=== PATIENT | male | born 1945 | race Caucasian/White ===

== ENCOUNTER → 2017-03-30 | Outpatient (REF) | payer MEDICARE, OTHER ==
[~2017-03-30] MED LIST: /CELE20CA PO; ALLE25CA PO; ASPI81TA83 OR; COLA100C2 PO; MYLI40DR PO; SUDA30TA OR; VICO5TAB PO; zocor PO
== END ==
LOC: M SFHCPLAZ 08:35
PROVIDERS: ATTEND Family Medicine
DX: E78.2 Mixed hyperlipidemia (principal); R73.01 Impaired fasting glucose; Z12.5 Encounter for screening for malignant neoplasm of prostate; Z53.8 Procedure and treatment not carried out for other reasons

== ENCOUNTER → 2017-09-29 | Outpatient (REF) | payer MEDICARE, OTHER ==
[2017-09-29 12:26] LABS: BASO # 0.1 10^3/uL (0.0-0.2); BASO % 0.9 % (0.0-1.0); EOS # 0.4 10^3/uL (0.0-0.50); EOS % 8.2 % (0.0-3.0); IMMATURE GRANULOCYTE % 0.6 % (0-0); LYMPH # 1.5 10^3/uL (1.5-4.5); LYMPH % 27.7 % (24.0-44.0); MEAN CORPUSCULAR HEMOGLOBIN 31.3 pg (27.0-33.0); MEAN CORPUSCULAR HGB CONC 33.9 g/dl (32.0-36.5); MEAN CORPUSCULAR VOLUME 92.4 fl (80.0-96.0); MONO # 0.5 10^3/uL (0.0-0.8); MONO % 8.9 % (0.0-5.0); NEUTROPHILS # 2.9 10^3/uL (1.8-7.7); NEUTROPHILS % 53.7 % (36.0-66.0); PLATELET COUNT, AUTOMATED 202 10^3/uL (150-450); RED CELL DISTRIBUTION WIDTH 12.2 % (11.5-14.5); WHITE BLOOD COUNT 5.4 10^3/uL (4.0-10.0)
[2017-09-29 12:59] LABS: ALBUMIN 4.2 GM/DL (3.2-5.2); ALKALINE PHOSPHATASE 95 U/L (45-117); ALT/SGPT 30 U/L (12-78); ANION GAP 9 MEQ/L (8-16); AST/SGOT 22 U/L (7-37); BILIRUBIN,TOTAL 0.5 MG/DL (0.2-1.0); BLOOD UREA NITROGEN 19 MG/DL (7-18); CARBON DIOXIDE LEVEL 27 MEQ/L (21-32); CHLORIDE LEVEL 108 MEQ/L (98-107); CHOLESTEROL LEVEL 151 MG/DL (<200); CREATININE FOR GFR 0.98 MG/DL (0.70-1.30); GLOMERULAR FILTRATION RATE > 60.0 (>42); GLUCOSE, FASTING 96 MG/DL (83-110); POTASSIUM SERUM 4.1 MEQ/L (3.5-5.1); SODIUM LEVEL 144 MEQ/L (136-145); TOTAL PROTEIN 7.2 GM/DL (6.4-8.2); TRIGLYCERIDES LEVEL 114 MG/DL (<150)
== END ==
LOC: M SFHCPLAZ 11:49
PROVIDERS: ATTEND Family Medicine
DX: E78.2 Mixed hyperlipidemia (principal); R73.01 Impaired fasting glucose; Z12.5 Encounter for screening for malignant neoplasm of prostate; Z23 Encounter for immunization
CPT/HCPCS: 36415; 80053; 80061; 81001; 82043; 83036; 85025; 90662; G0008; G0103; G0463

== ENCOUNTER → 2018-01-11 | Outpatient (CLI) | payer MEDICARE, BC, OTHER | LOC: M RAD 10:28 | DX: H91.8X1 Other specified hearing loss, right ear (principal) | CPT/HCPCS: 70480 ==

== ENCOUNTER → 2018-01-14 | Outpatient (CLI) | payer MEDICARE, BC, OTHER ==
[2018-01-14 10:33] LABS: BLOOD UREA NITROGEN 22 MG/DL (7-18)
[2018-01-14 10:33] LABS: CREATININE FOR GFR 1.04 MG/DL (0.70-1.30); GLOMERULAR FILTRATION RATE > 60.0 (>42)
== END ==
LOC: M LAB 09:15
DX: H91.21 Sudden idiopathic hearing loss, right ear (principal)
CPT/HCPCS: 82565

== ENCOUNTER → 2018-01-19 | Outpatient (CLI) | payer MEDICARE, BC, OTHER ==
[~2018-01-19] MED LIST changes: -/CELE20CA PO; -ALLE25CA PO; -ASPI81TA83 OR; -COLA100C2 PO; -MYLI40DR PO; +PROHANCE 279.3MG/ML 15ML VIAL (A9576) As Ordered; -SUDA30TA OR; -VICO5TAB PO; -zocor PO
== END ==
LOC: M RAD 14:53
DX: H91.21 Sudden idiopathic hearing loss, right ear (principal); I67.82 Cerebral ischemia
CPT/HCPCS: A9576

== ENCOUNTER → 2018-03-23 | Outpatient (REF) | payer MEDICARE, OTHER ==
[2018-03-23 13:04] LABS: ALBUMIN 3.8 GM/DL (3.2-5.2); ALBUMIN/GLOBULIN RATIO 1.27 (1.00-1.93); ALKALINE PHOSPHATASE 92 U/L (45-117); ALT/SGPT 27 U/L (12-78); ANION GAP 6 MEQ/L (8-16); AST/SGOT 25 U/L (7-37); BILIRUBIN,TOTAL 0.7 MG/DL (0.2-1.0); BLOOD UREA NITROGEN 17 MG/DL (7-18); CALCIUM LEVEL 8.8 MG/DL (8.8-10.2); CARBON DIOXIDE LEVEL 29 MEQ/L (21-32); CHLORIDE LEVEL 108 MEQ/L (98-107); CREATININE FOR GFR 0.86 MG/DL (0.70-1.30); GLOMERULAR FILTRATION RATE > 60.0 (>42); GLUCOSE, FASTING 85 MG/DL (70-100); MAGNESIUM LEVEL 2.6 MG/DL (1.8-2.4); POTASSIUM SERUM 4.1 MEQ/L (3.5-5.1); SODIUM LEVEL 143 MEQ/L (136-145); TOTAL PROTEIN 6.8 GM/DL (6.4-8.2)
[2018-03-23 16:35] LABS: APPEARANCE, URINE CLEAR (CLEAR); BACTERIA, URINE AUTO NEGATIVE (NEGATIVE); BILIRUBIN, URINE AUTO NEGATIVE (NEGATIVE); BLOOD, URINE BLOOD NEGATIVE (NEGATIVE); COLOR, URINE YELLOW (YELLOW); GLUCOSE, URINE (UA) AUTO NEGATIVE (NEGATIVE); KETONE, URINE AUTO NEGATIVE (NEGATIVE); LEUKOCYTE ESTERASE, URINE AUTO NEGATIVE (NEGATIVE); NITRITE, URINE AUTO NEGATIVE (NEGATIVE); PROTEIN, URINE AUTO NEGATIVE (NEGATIVE); RBC, URINE AUTO 1 /HPF (0-3); SPECIFIC GRAVITY URINE AUTO 1.015 (1.002-1.035); SQUAMOUS EPITHELIAL CELL UR AU 0 /HPF (0-6); UROBILINOGEN, URINE AUTO 0.2 mg/dL (0.0-2.0); WBC, URINE AUTO 0 /HPF (0-3)
[2018-03-23 16:36] LABS: MALB URINE SIEMENS 5.9 MG/L; MAU/CREAT RATIO 5.2 MCG/MG (0.0-30.0)
[2018-03-24 17:41] LABS: INSULIN LEVEL 6.2 uIU/mL (2.6-24.9)
== END ==
LOC: M SFHCPLAZ 08:39
DX: E78.2 Mixed hyperlipidemia (principal); R73.01 Impaired fasting glucose
CPT/HCPCS: 83525

== ENCOUNTER → 2018-09-30 | Outpatient (REF) | payer MEDICARE, OTHER ==
[2018-09-30 12:23] LABS: BASO % 0.8 % (0.0-1.0); EOS # 0.3 10^3/uL (0.0-0.50); EOS % 6.7 % (0.0-3.0); HEMATOCRIT 47.4 % (42.0-52.0); HEMOGLOBIN 15.8 g/dl (13.5-17.5); IMMATURE GRANULOCYTE % 0.8 % (0-3.0); LYMPH # 1.4 10^3/uL (1.5-4.5); LYMPH % 27.6 % (24.0-44.0); MEAN CORPUSCULAR HEMOGLOBIN 32.3 pg (27.0-33.0); MEAN CORPUSCULAR HGB CONC 33.3 g/dl (32.0-36.5); MEAN CORPUSCULAR VOLUME 96.9 fl (80.0-96.0); MONO # 0.4 10^3/uL (0.0-0.8); MONO % 8.3 % (0.0-5.0); NEUTROPHILS # 2.8 10^3/uL (1.8-7.7); NEUTROPHILS % 55.8 % (36.0-66.0); PLATELET COUNT, AUTOMATED 185 10^3/uL (150-450); RED BLOOD COUNT 4.89 10^6/uL (4.30-6.10); RED CELL DISTRIBUTION WIDTH 11.7 % (11.5-14.5); WHITE BLOOD COUNT 5.1 10^3/uL (4.0-10.0)
[2018-09-30 13:37] LABS: CPK CREATINE PHOSPHOKINASE 80 U/L (39-308); TRIGLYCERIDES LEVEL 196 MG/DL (<150)
[2018-09-30 13:38] LABS: C REACTIVE PROTEIN QUANTITATIV < 0.30 MG/DL (0.00-0.30); CHOLESTEROL LEVEL 166 MG/DL (<200); CHOLESTEROL RISK RATIO 3.608 (<5); FREE T4 0.93 NG/DL (0.76-1.46); HDL CHOLESTEROL 46 MG/DL (>40); LDL CHOLESTEROL 81 MG/DL (<100); NON-HDL-C 120 MG/DL; PSA SCREENING 2.1 NG/ML (< 4.0)
== END ==
LOC: M SFHCPLAZ 08:24
DX: E78.2 Mixed hyperlipidemia (principal); Z12.5 Encounter for screening for malignant neoplasm of prostate; R73.01 Impaired fasting glucose
CPT/HCPCS: 82550

== ENCOUNTER → 2019-04-08 | Outpatient (REF) | payer MEDICARE, OTHER ==
[~2019-04-08] MED LIST changes: +ALLE25CA PO; +ASPI81TA83 OR; +CELE1CAP4 PO; +COLA100C2 PO; +MYLI40DR PO; -PROHANCE 279.3MG/ML 15ML VIAL (A9576) As Ordered; +SUDA30TA OR; +VICO5TAB PO; +zocor PO
[2019-04-08 09:46] LABS: BASO % 0.7 % (0.0-1.0); EOS # 0.5 10^3/uL (0.0-0.50); EOS % 7.9 % (0.0-3.0); HEMOGLOBIN 16.6 g/dl (13.5-17.5); LYMPH # 1.5 10^3/uL (1.5-4.5); LYMPH % 26.8 % (24.0-44.0); MEAN CORPUSCULAR HEMOGLOBIN 31.7 pg (27.0-33.0); MEAN CORPUSCULAR HGB CONC 33.9 g/dl (32.0-36.5); MEAN CORPUSCULAR VOLUME 93.7 fl (80.0-96.0); MONO # 0.5 10^3/uL (0.0-0.8); MONO % 8.9 % (0.0-5.0); NEUTROPHILS # 3.1 10^3/uL (1.8-7.7); NEUTROPHILS % 55.2 % (36.0-66.0); PLATELET COUNT, AUTOMATED 212 10^3/uL (150-450); RED BLOOD COUNT 5.23 10^6/uL (4.30-6.10); WHITE BLOOD COUNT 5.7 10^3/uL (4.0-10.0)
[2019-04-08 10:18] LABS: HEMOGLOBIN A1c 5.7 %
[2019-04-08 10:21] LABS: BLOOD UREA NITROGEN 19 MG/DL (7-18); CARBON DIOXIDE LEVEL 33 MEQ/L (21-32); CHLORIDE LEVEL 104 MEQ/L (98-107); CREATININE FOR GFR 0.96 MG/DL (0.70-1.30); GLOMERULAR FILTRATION RATE > 60.0 (>42); GLUCOSE, FASTING 89 MG/DL (70-100); POTASSIUM SERUM 4.2 MEQ/L (3.5-5.1); SODIUM LEVEL 142 MEQ/L (136-145)
[2019-04-08 10:22] LABS: ALT/SGPT 32 U/L (12-78); BILIRUBIN,TOTAL 0.8 MG/DL (0.2-1.0); CALCIUM LEVEL 9.1 MG/DL (8.8-10.2); TOTAL PROTEIN 6.9 GM/DL (6.4-8.2)
[2019-04-08 11:42] LABS: VITAMIN B12 LEVEL 101 PG/ML (247-911)
[2019-04-12 12:24] LABS: ALBUMIN 4.31 GM/DL (3.29-5.55); ALBUMIN % 62.4 % (55.8-66.1); ALPHA-1-GLOBULIN % 4.3 % (2.9-4.9); ALPHA-2-GLOBULINS % 10.2 % (7.1-11.8); BETA-1-GLOBULINS 0.46 GM/DL (0.28-0.60); BETA-1-GLOBULINS % 6.7 % (4.7-7.2); BETA-2-GLOBULINS 0.42 GM/DL (0.19-0.55); BETA-2-GLOBULINS % 6.1 % (3.2-6.5); GAMMA GLOBULIN % 10.3 % (11.1-18.8); GAMMA GLOBULINS 0.71 GM/DL (0.65-1.58)
== END ==
LOC: M SFHCPLAZ 08:13
PROVIDERS: ATTEND Family Medicine
DX: D75.89 Other specified diseases of blood and blood-forming organs (principal); E78.2 Mixed hyperlipidemia; R73.01 Impaired fasting glucose

== ENCOUNTER → 2019-09-30 | Outpatient (REF) | payer MEDICARE, OTHER ==
[2019-09-30 12:32] LABS: ALBUMIN 4.1 GM/DL (3.2-5.2); ALT/SGPT 32 U/L (12-78); BILIRUBIN,TOTAL 0.8 MG/DL (0.2-1.0); BLOOD UREA NITROGEN 19 MG/DL (7-18); CALCIUM LEVEL 9.1 MG/DL (8.8-10.2); CARBON DIOXIDE LEVEL 30 MEQ/L (21-32); CHLORIDE LEVEL 106 MEQ/L (98-107); GLOMERULAR FILTRATION RATE > 60.0 (>42); GLUCOSE, FASTING 93 MG/DL (70-100); POTASSIUM SERUM 4.2 MEQ/L (3.5-5.1); PROSTATIC SPECIFIC AG MONITOR 2.27 NG/ML (< 4.00); SODIUM LEVEL 142 MEQ/L (136-145); TOTAL PROTEIN 7.1 GM/DL (6.4-8.2)
[2019-09-30 12:39] LABS: PTH INTACT 41.7 PG/ML (18.5-88.0); TOTAL 25(OH) VITAMIN D 29.3 NG/ML (30.0-100.0); VITAMIN B12 LEVEL 683 PG/ML (247-911)
[2019-09-30 12:53] LABS: HEMOGLOBIN A1c 5.6 %
== END ==
LOC: M LABDRAWP 09:52
PROVIDERS: ATTEND Family Medicine
DX: D75.89 Other specified diseases of blood and blood-forming organs (principal); E78.2 Mixed hyperlipidemia; R73.01 Impaired fasting glucose; Z79.899 Other long term (current) drug therapy
CPT/HCPCS: 36415; 80053; 82306; 82607; 83036; 83970; 84153; G0463

== ENCOUNTER → 2020-03-02 | Outpatient (REF) | payer MEDICARE, OTHER ==
[2020-03-02 11:05] LABS: BASO # 0.1 10^3/uL (0.0-0.2); BASO % 0.9 % (0.0-1.0); EOS # 0.5 10^3/uL (0.0-0.5); EOS % 9.2 % (0.0-3.0); HEMATOCRIT 48.9 % (42.0-52.0); HEMOGLOBIN 16.2 g/dl (13.5-17.5); LYMPH # 1.8 10^3/uL (1.5-5.0); LYMPH % 32.6 % (24.0-44.0); MEAN CORPUSCULAR HEMOGLOBIN 30.9 pg (27.0-33.0); MEAN CORPUSCULAR HGB CONC 33.1 g/dl (32.0-36.5); MEAN CORPUSCULAR VOLUME 93.3 fl (80.0-96.0); MONO # 0.5 10^3/uL (0.0-0.8); MONO % 8.5 % (0.0-5.0); NEUTROPHILS # 2.7 10^3/uL (1.5-8.5); NEUTROPHILS % 48.3 % (36.0-66.0); PLATELET COUNT, AUTOMATED 182 10^3/uL (150-450); RED BLOOD COUNT 5.24 10^6/uL (4.30-6.10); WHITE BLOOD COUNT 5.6 10^3/uL (4.0-10.0)
[2020-03-02 11:27] LABS: ALBUMIN 4.1 GM/DL (3.2-5.2); ALT/SGPT 32 U/L (12-78); BILIRUBIN,TOTAL 0.8 MG/DL (0.2-1.0); BLOOD UREA NITROGEN 19 MG/DL (7-18); CALCIUM LEVEL 9.1 MG/DL (8.8-10.2); CARBON DIOXIDE LEVEL 31 MEQ/L (21-32); CHLORIDE LEVEL 105 MEQ/L (98-107); CHOLESTEROL LEVEL 150 MG/DL (<200); CHOLESTEROL RISK RATIO 3.061 (<5); CREATININE FOR GFR 1.02 MG/DL (0.70-1.30); GLOMERULAR FILTRATION RATE > 60.0 (>42); GLUCOSE, FASTING 103 MG/DL (70-100); HDL CHOLESTEROL 49 MG/DL (>40); LDL CHOLESTEROL 71 MG/DL (<100); NON-HDL-C 101 MG/DL; POTASSIUM SERUM 4.5 MEQ/L (3.5-5.1); SODIUM LEVEL 141 MEQ/L (136-145); TOTAL PROTEIN 7.2 GM/DL (6.4-8.2); TRIGLYCERIDES LEVEL 149 MG/DL (<150)
== END ==
LOC: M SFHCPLAZ 08:28
PROVIDERS: ATTEND Family Medicine
DX: E78.2 Mixed hyperlipidemia (principal); D75.89 Other specified diseases of blood and blood-forming organs; R73.01 Impaired fasting glucose

== ENCOUNTER → 2020-08-27 | Outpatient (REF) | payer MEDICARE, OTHER ==
[2020-08-27 13:33] LABS: AMORPHOUS SEDIMENT MODERATE (NEGATIVE); APPEARANCE, URINE TURBID (CLEAR); BACTERIA, URINE AUTO NEGATIVE (NEGATIVE); BILIRUBIN, URINE AUTO NEGATIVE (NEGATIVE); BLOOD, URINE BLOOD NEGATIVE (NEGATIVE); COLOR, URINE YELLOW (YELLOW); GLUCOSE, URINE (UA) AUTO NEGATIVE (NEGATIVE); KETONE, URINE AUTO NEGATIVE (NEGATIVE); LEUKOCYTE ESTERASE, URINE AUTO NEGATIVE (NEGATIVE); NITRITE, URINE AUTO NEGATIVE (NEGATIVE); PROTEIN, URINE AUTO NEGATIVE (NEGATIVE); RBC, URINE AUTO 0 /HPF (0-3); SPECIFIC GRAVITY URINE AUTO 1.025 (1.002-1.035); SQUAMOUS EPITHELIAL CELL UR AU 0 /HPF (0-6); UROBILINOGEN, URINE AUTO 0.2 mg/dL (0.0-2.0); WBC, URINE AUTO 0 /HPF (0-3)
[2020-08-27 13:51] LABS: BASO # 0.1 10^3/uL (0.0-0.2); BASO % 0.9 % (0.0-1.0); EOS # 0.4 10^3/uL (0.0-0.5); HEMATOCRIT 51.1 % (42.0-52.0); HEMOGLOBIN 17.3 g/dl (13.5-17.5); LYMPH # 1.8 10^3/uL (1.5-5.0); LYMPH % 30.7 % (24.0-44.0); MEAN CORPUSCULAR HEMOGLOBIN 31.7 pg (27.0-33.0); MEAN CORPUSCULAR HGB CONC 33.9 g/dl (32.0-36.5); MEAN CORPUSCULAR VOLUME 93.8 fl (80.0-96.0); MONO # 0.6 10^3/uL (0.0-0.8); MONO % 9.4 % (0.0-5.0); NEUTROPHILS # 3.1 10^3/uL (1.5-8.5); NEUTROPHILS % 52.5 % (36.0-66.0); PLATELET COUNT, AUTOMATED 183 10^3/uL (150-450); RED BLOOD COUNT 5.45 10^6/uL (4.30-6.10); WHITE BLOOD COUNT 5.9 10^3/uL (4.0-10.0)
[2020-08-27 18:29] LABS: MALB URINE SIEMENS 16.3 MG/L; MAU/CREAT RATIO 5.8 MCG/MG (0.0-30.0)
[2020-08-27 18:51] LABS: ALBUMIN 4.1 GM/DL (3.2-5.2); ALT/SGPT 27 U/L (12-78); BILIRUBIN,TOTAL 0.7 MG/DL (0.2-1.0); BLOOD UREA NITROGEN 18 MG/DL (7-18); CALCIUM LEVEL 9.3 MG/DL (8.8-10.2); CARBON DIOXIDE LEVEL 29 MEQ/L (21-32); CHLORIDE LEVEL 107 MEQ/L (98-107); GLOMERULAR FILTRATION RATE > 60.0 (>42); GLUCOSE, FASTING 91 MG/DL (70-100); SODIUM LEVEL 142 MEQ/L (136-145); TOTAL PROTEIN 7.2 GM/DL (6.4-8.2)
[2020-08-27 18:55] LABS: VITAMIN B12 LEVEL 1164 PG/ML (247-911)
[2020-08-27 20:19] LABS: HEMOGLOBIN A1c 5.3 %
== END ==
LOC: M SFHCPLAZ 09:09
PROVIDERS: ATTEND Family Medicine
DX: R73.01 Impaired fasting glucose (principal); E53.8 Deficiency of other specified B group vitamins; Z12.5 Encounter for screening for malignant neoplasm of prostate
CPT/HCPCS: 36415; 80053; 81001; 82043; 82607; 83036; 85025; G0103; G0463

== ENCOUNTER → 2020-10-02 | Outpatient (CLI) | payer SELFPAY | LOC: M LABSMTC 09:17 | PROVIDERS: ATTEND Pediatrics | DX: Z11.59 Encounter for screening for other viral diseases (principal) ==

== ENCOUNTER → 2021-02-13 | Outpatient (REF) | payer MEDICARE, OTHER ==
[2021-02-13 11:13] LABS: ALBUMIN 3.9 GM/DL (3.2-5.2); ALT/SGPT 30 U/L (12-78); BILIRUBIN,TOTAL 0.7 MG/DL (0.2-1.0); BLOOD UREA NITROGEN 18 MG/DL (7-18); CALCIUM LEVEL 9.1 MG/DL (8.8-10.2); CARBON DIOXIDE LEVEL 29 MEQ/L (21-32); CHLORIDE LEVEL 107 MEQ/L (98-107); CHOLESTEROL LEVEL 136 MG/DL (<200); CHOLESTEROL RISK RATIO 3.317 (<5); CREATININE FOR GFR 0.96 MG/DL (0.70-1.30); GLOMERULAR FILTRATION RATE > 60.0 (>42); GLUCOSE, FASTING 94 MG/DL (70-100); HDL CHOLESTEROL 41 MG/DL (>40); LDL CHOLESTEROL 57 MG/DL (<100); NON-HDL-C 95 MG/DL; POTASSIUM SERUM 4.4 MEQ/L (3.5-5.1); SODIUM LEVEL 142 MEQ/L (136-145); TOTAL PROTEIN 6.8 GM/DL (6.4-8.2); TRIGLYCERIDES LEVEL 189 MG/DL (<150)
[2021-02-13 11:14] LABS: FERRITIN 134 NG/ML (26-388); FREE T4 0.92 NG/DL (0.76-1.46)
[2021-02-13 11:18] LABS: HEMOGLOBIN A1c 5.2 %
[2021-02-14 08:10] LABS: ERYTHROPOIETIN 6.2 mIU/mL (2.6-18.5); INSULIN LEVEL 14.4 uIU/mL (2.6-24.9)
[2021-02-14 14:23] LABS: ALBUMIN 4.28 GM/DL (3.29-5.55); ALPHA-1-GLOBULIN % 3.9 % (2.9-4.9); ALPHA-1-GLOBULINS 0.27 GM/DL (0.17-0.41); ALPHA-2-GLOBULINS 0.67 GM/DL (0.42-0.99); ALPHA-2-GLOBULINS % 9.9 % (7.1-11.8); BETA-1-GLOBULINS 0.42 GM/DL (0.28-0.60); BETA-1-GLOBULINS % 6.2 % (4.7-7.2); BETA-2-GLOBULINS 0.39 GM/DL (0.19-0.55); BETA-2-GLOBULINS % 5.8 % (3.2-6.5); GAMMA GLOBULIN % 11.2 % (11.1-18.8); GAMMA GLOBULINS 0.76 GM/DL (0.65-1.58)
== END ==
LOC: M SFHCPLAZ 08:04
PROVIDERS: ATTEND Family Medicine
DX: R73.01 Impaired fasting glucose (principal); E78.2 Mixed hyperlipidemia; D75.89 Other specified diseases of blood and blood-forming organs

== ENCOUNTER → 2021-04-05 | Outpatient (REF) | payer MEDICARE, OTHER ==
[2021-04-05 13:23] LABS: BASO # 0.1 10^3/uL (0.0-0.2); BASO % 0.7 % (0.0-1.0); EOS # 0.3 10^3/uL (0.0-0.5); EOS % 3.7 % (0.0-3.0); HEMATOCRIT 48.7 % (42.0-52.0); HEMOGLOBIN 16.1 g/dl (13.5-17.5); LYMPH # 1.5 10^3/uL (1.5-5.0); LYMPH % 21.2 % (24.0-44.0); MEAN CORPUSCULAR HEMOGLOBIN 31.2 pg (27.0-33.0); MEAN CORPUSCULAR HGB CONC 33.1 g/dl (32.0-36.5); MEAN CORPUSCULAR VOLUME 94.4 fl (80.0-96.0); MONO # 0.8 10^3/uL (0.0-0.8); MONO % 10.5 % (2.0-8.0); NEUTROPHILS # 4.6 10^3/uL (1.5-8.5); NEUTROPHILS % 63.6 % (36.0-66.0); PLATELET COUNT, AUTOMATED 180 10^3/uL (150-450); RED BLOOD COUNT 5.16 10^6/uL (4.30-6.10); WHITE BLOOD COUNT 7.2 10^3/uL (4.0-10.0)
[2021-04-05 14:17] LABS: ERYTHROCYTE SEDIMENTATION RATE 4 mm/hr (0-20)
== END ==
LOC: M PLALAB 13:08
PROVIDERS: ATTEND Physician Assistant
DX: M79.675 Pain in left toe(s) (principal)

== ENCOUNTER → 2021-08-08 | Outpatient (CLI) | payer MEDICARE, OTHER ==
[2021-08-08 15:36] LABS: BASO # 0.1 10^3/uL (0.0-0.2); BASO % 0.8 % (0.0-1.0); EOS # 0.4 10^3/uL (0.0-0.5); EOS % 6.1 % (0.0-3.0); HEMATOCRIT 46.4 % (42.0-52.0); HEMOGLOBIN 16.1 g/dl (13.5-17.5); LYMPH # 1.9 10^3/uL (1.5-5.0); LYMPH % 28.8 % (24.0-44.0); MEAN CORPUSCULAR HEMOGLOBIN 31.5 pg (27.0-33.0); MEAN CORPUSCULAR HGB CONC 34.7 g/dl (32.0-36.5); MEAN CORPUSCULAR VOLUME 90.8 fl (80.0-96.0); MONO # 0.5 10^3/uL (0.0-0.8); MONO % 7.3 % (2.0-8.0); NEUTROPHILS # 3.6 10^3/uL (1.5-8.5); NEUTROPHILS % 56.7 % (36.0-66.0); PLATELET COUNT, AUTOMATED 182 10^3/uL (150-450); RED BLOOD COUNT 5.11 10^6/uL (4.30-6.10); WHITE BLOOD COUNT 6.4 10^3/uL (4.0-10.0)
[2021-08-08 16:16] LABS: ALBUMIN 3.6 GM/DL (3.2-5.2); ALT/SGPT 28 U/L (12-78); BILIRUBIN,TOTAL 0.7 MG/DL (0.2-1.0); BLOOD UREA NITROGEN 18 MG/DL (7-18); CARBON DIOXIDE LEVEL 28 MEQ/L (21-32); CHLORIDE LEVEL 107 MEQ/L (98-107); CREATININE FOR GFR 1.09 MG/DL (0.70-1.30); GLOMERULAR FILTRATION RATE > 60.0 (>42); GLUCOSE, FASTING 98 MG/DL (70-100); IRON (FE) 132 UG/DL (65-175); NT-PRO BNP 31 PG/ML (<450); SODIUM LEVEL 141 MEQ/L (136-145); TOTAL IRON BINDING CAPACITY 314 UG/DL (250-450); TOTAL PROTEIN 6.7 GM/DL (6.4-8.2)
[2021-08-08 16:27] LABS: VITAMIN B12 LEVEL 945 PG/ML (247-911)
[2021-08-09 12:18] LABS: JAK2 MUTATIONS FOR PATH SENDOU See Pathology Report
[2021-08-10 08:09] LABS: ERYTHROPOIETIN 10.5 mIU/mL (2.6-18.5)
== END ==
LOC: M LAB 15:17
PROVIDERS: ATTEND Family Medicine
DX: E78.2 Mixed hyperlipidemia (principal); D75.1 Secondary polycythemia; E53.8 Deficiency of other specified B group vitamins; Z12.5 Encounter for screening for malignant neoplasm of prostate
CPT/HCPCS: 36415; 80053; 82607; 82668; 83550; 83880; 85025; 88300; G0103

== ENCOUNTER → 2022-02-11 | Outpatient (CLI) | payer MEDICARE, BC, OTHER ==
[2022-02-11 13:55] LABS: BASO % 0.7 % (0.0-1.0); EOS # 0.4 10^3/uL (0.0-0.5); EOS % 7.6 % (0.0-3.0); HEMATOCRIT 49.7 % (42.0-52.0); HEMOGLOBIN 16.6 g/dl (13.5-17.5); LYMPH # 1.8 10^3/uL (1.5-5.0); LYMPH % 30.6 % (24.0-44.0); MEAN CORPUSCULAR HEMOGLOBIN 30.6 pg (27.0-33.0); MEAN CORPUSCULAR HGB CONC 33.4 g/dl (32.0-36.5); MEAN CORPUSCULAR VOLUME 91.5 fl (80.0-96.0); MONO # 0.5 10^3/uL (0.0-0.8); MONO % 8.2 % (2.0-8.0); NEUTROPHILS % 52.4 % (36.0-66.0); PLATELET COUNT, AUTOMATED 176 10^3/uL (150-450); RED BLOOD COUNT 5.43 10^6/uL (4.30-6.10); WHITE BLOOD COUNT 5.8 10^3/uL (4.0-10.0)
[2022-02-11 14:06] LABS: ALT/SGPT 30 U/L (12-78); BILIRUBIN,TOTAL 0.7 MG/DL (0.2-1.0); BLOOD UREA NITROGEN 17 MG/DL (7-18); CALCIUM LEVEL 9.6 MG/DL (8.8-10.2); CARBON DIOXIDE LEVEL 29 MEQ/L (21-32); CHLORIDE LEVEL 108 MEQ/L (98-107); CHOLESTEROL LEVEL 137 MG/DL (<200); CHOLESTEROL RISK RATIO 3.186 (<5); CREATININE FOR GFR 0.86 MG/DL (0.70-1.30); GLOMERULAR FILTRATION RATE > 60.0 (>42); GLUCOSE, FASTING 90 MG/DL (70-100); HDL CHOLESTEROL 43 MG/DL (>40); LDL CHOLESTEROL 63 MG/DL (<100); NON-HDL-C 94 MG/DL; POTASSIUM SERUM 4.5 MEQ/L (3.5-5.1); SODIUM LEVEL 142 MEQ/L (136-145); TOTAL PROTEIN 6.8 GM/DL (6.4-8.2); TRIGLYCERIDES LEVEL 153 MG/DL (<150)
[2022-02-11 14:13] LABS: HEMOGLOBIN A1c 5.1 %
== END ==
LOC: M PLALAB 09:55
PROVIDERS: ATTEND Family Medicine
DX: R73.01 Impaired fasting glucose (principal); R78.2 Finding of cocaine in blood; D75.1 Secondary polycythemia; Z79.899 Other long term (current) drug therapy

== ENCOUNTER → 2022-08-07 | Outpatient (CLI) | payer MEDICARE, BC, OTHER | LOC: M PLAIMG 08:25 | PROVIDERS: ATTEND Family Medicine | DX: R05.3 Chronic cough (principal) ==

== ENCOUNTER → 2022-11-18 | Outpatient (CLI) | payer MEDICARE, BC, OTHER | LOC: M PLAIMG 14:09 | PROVIDERS: ATTEND Family Medicine | DX: R05.9 Cough, unspecified (principal) ==

== ENCOUNTER → 2022-11-19 | Outpatient (REF) | payer MEDICARE, BC, OTHER | LOC: M SFHCPLAZ 10:12 | PROVIDERS: ATTEND Family Medicine | DX: R05.9 Cough, unspecified (principal) ==

== ENCOUNTER → 2022-12-04 | Outpatient (CLI) | payer MEDICARE, BC, OTHER ==
[2022-12-04 17:27] LABS: C REACTIVE PROTEIN QUANTITATIV < 0.40 MG/DL (<1.0)
[2022-12-04 17:28] LABS: ALBUMIN 4.1 G/DL (3.2-5.2); ALKALINE PHOSPHATASE 107 U/L (46-116); ALT/SGPT 27 U/L (7.0-40); AST/SGOT 27 U/L (<34); BILIRUBIN,TOTAL 0.6 MG/DL (0.3-1.2); BLOOD UREA NITROGEN 18 MG/DL (9-23); CALCIUM LEVEL 9.2 MG/DL (8.3-10.6); CARBON DIOXIDE LEVEL 31 MMOL/L (20-31); CHLORIDE LEVEL 106 MMOL/L (98-107); CREATININE FOR GFR 0.87 MG/DL (0.70-1.30); GLOMERULAR FILTRATION RATE > 60.0 (>42); GLUCOSE, FASTING 77 MG/DL (74-106); SODIUM LEVEL 141 MMOL/L (136-145); TOTAL PROTEIN 6.7 G/DL (5.7-8.2)
[2022-12-04 17:29] LABS: RHEUMATOID FACTOR QUANT < 3.5 IU/ML (<14)
[2022-12-04 17:41] LABS: BASO # 0.1 10^3/uL (0.0-0.2); BASO % 1.1 % (0.0-1.0); EOS # 0.4 10^3/uL (0.0-0.5); EOS % 7.5 % (0.0-3.0); LYMPH # 1.5 10^3/uL (1.5-5.0); LYMPH % 28.9 % (24.0-44.0); MEAN CORPUSCULAR HEMOGLOBIN 31.2 pg (27.0-33.0); MEAN CORPUSCULAR HGB CONC 33.8 g/dl (32.0-36.5); MEAN CORPUSCULAR VOLUME 92.3 fl (80.0-96.0); MONO # 0.4 10^3/uL (0.0-0.8); MONO % 8.3 % (2.0-8.0); NEUTROPHILS # 2.9 10^3/uL (1.5-8.5); PLATELET COUNT, AUTOMATED 191 10^3/uL (150-450); WHITE BLOOD COUNT 5.3 10^3/uL (4.0-10.0)
[2022-12-04 17:46] LABS: CPK CREATINE PHOSPHOKINASE 108 U/L (46-171)
[2022-12-04 17:50] LABS: HEMOGLOBIN 16.9 g/dl (13.5-17.5); RED BLOOD COUNT 5.42 10^6/uL (4.30-6.10)
[2022-12-04 18:09] LABS: ERYTHROCYTE SEDIMENTATION RATE 14 mm/hr (0-20)
[2022-12-04 18:28] LABS: APPEARANCE, URINE MANUAL CLEAR (CLEAR); BILIRUBIN, URINE MANUAL NEGATIVE (NEGATIVE); BLOOD URINE MANUAL NEGATIVE (NEGATIVE); COLOR, URINE MANUAL YELLOW (YELLOW); GLUCOSE, URINE (UA) MANUAL NEGATIVE (NEGATIVE); KETONE, URINE MANUAL NEGATIVE (NEGATIVE); LEUKOCYTE ESTERASE, URINE MAN NEGATIVE (NEGATIVE); NITRITE, URINE MANUAL NEGATIVE (NEGATIVE); PROTEIN, URINE MANUAL NEGATIVE (NEGATIVE); UROBILINOGEN, URINE MANUAL NORMAL (NORMAL)
[2022-12-06 17:07] LABS: MYCOPLASMA PNEUMONIAE IgG 1420 U/mL (0-99); MYCOPLASMA PNEUMONIAE IgM <770 U/mL (0-769)
[2022-12-12 14:08] LABS: ANTINUCLEAR ANTIBODIES DIRECT Negative (Negative); ASPERGILLUS FUMIGATUS AB Negative (Negative); AUREOBASIDIUM PULLULANS Negative (Negative); CHLAMYDIA PNEUMONIAE IgM < 1:10 (< 1:10); CHLAMYDIA PSITTACI IgM < 1:10 (< 1:10); CHLAMYDIA TRACHOMATIS IgM < 1:10 (< 1:10); CYCLIC CITRULLINATED PEPTIDE 3 units (0-19); HAEMOPHILUS INFLUENZA b AB PRE <0.15 ug/mL (.); L. PNEUMOPHILA (1,3,4,5,6,8) <0.91 OD ratio (0.00-0.90); MICROPOLYSPORA FAENI AB Negative (Negative); PIGEON SERUM AB Negative (Negative); THERMOACTINOMYCES SACCHARI Negative (Negative); THERMOACTINOMYCES VULGARIS Negative (Negative)
== END ==
LOC: M PLALAB 14:38
PROVIDERS: ATTEND Family Medicine
DX: R05.3 Chronic cough (principal); Z79.899 Other long term (current) drug therapy

== ENCOUNTER → 2022-12-24 | Outpatient (CLI) | payer MEDICARE, BC, OTHER | LOC: M PLAIMG 12:26 | PROVIDERS: ATTEND Family Medicine | DX: R91.1 Solitary pulmonary nodule (principal); J84.9 Interstitial pulmonary disease, unspecified; R05.3 Chronic cough ==

== ENCOUNTER → 2022-12-29 | Outpatient (CLI) | payer MEDICARE, BC, OTHER | LOC: M CARPUL 12:34 | PROVIDERS: ATTEND Family Medicine | DX: R05.3 Chronic cough (principal) ==

== ENCOUNTER → 2023-02-26 | Outpatient (REF) | payer MEDICARE, OTHER | LOC: M SFHCPLAZ 08:57 | PROVIDERS: ATTEND Family Medicine | DX: R91.1 Solitary pulmonary nodule (principal); E78.2 Mixed hyperlipidemia; D75.1 Secondary polycythemia; R73.01 Impaired fasting glucose; Z12.5 Encounter for screening for malignant neoplasm of prostate ==

== ENCOUNTER → 2023-09-29 | Outpatient (CLI) | payer MEDICARE, BC, OTHER | LOC: M PLAIMG 10:15 | PROVIDERS: ATTEND Family Medicine | DX: J32.9 Chronic sinusitis, unspecified (principal); R05.3 Chronic cough ==

== ENCOUNTER → 2023-09-29 | Outpatient (REF) | payer MEDICARE, OTHER | LOC: M SFHCPLAZ 17:35 | PROVIDERS: ATTEND Family Medicine | DX: J32.9 Chronic sinusitis, unspecified (principal) ==

== ENCOUNTER → 2023-11-16 | Outpatient (CLI) | payer MEDICARE, BC, OTHER | LOC: M PLAIMG 09:44 | PROVIDERS: ATTEND Family Medicine | DX: J32.4 Chronic pansinusitis (principal) ==

== ENCOUNTER → 2024-01-04 | Day surgery (SDC) | payer MEDICARE, BC, OTHER ==
[~2024-01-04] VITALS: Ht 177.8 cm; Wt 67.3 kg
[~2024-01-04] MED LIST changes: +CYAN-11 PO; +SIMV20TA22 PO; +XALA0.007 OU
[2024-01-04] MEDS: NS 1,000 ML IV ONE (09:02)
[2024-01-04 09:03] VITALS: BP 161/77; TEMP 96.5; O2SAT 95
== END | disposition home or self-care (01) ==
LOC: M OPP 08:42
PROVIDERS: ATTEND Internal Medicine Gastroenterology
DX: Z12.11 Encounter for screening for malignant neoplasm of colon (principal); Z53.20 Procedure and treatment not carried out because of patient's decision for unspecified reasons

== ENCOUNTER → 2024-04-05 | Outpatient (CLI) | payer MEDICARE, BC, OTHER ==
[2024-04-05 15:24] LABS: BASO # 0.1 10^3/uL (0.0-0.2); EOS # 0.7 10^3/uL (0.0-0.5); EOS % 12.8 % (0.0-3.0); HEMATOCRIT 47.9 % (42.0-52.0); HEMOGLOBIN 15.8 g/dl (13.5-17.5); LYMPH # 1.7 10^3/uL (1.5-5.0); LYMPH % 29.2 % (24.0-44.0); MEAN CORPUSCULAR HEMOGLOBIN 30.7 pg (27.0-33.0); MEAN CORPUSCULAR VOLUME 93.2 fl (80.0-96.0); MONO # 0.4 10^3/uL (0.0-0.8); MONO % 7.7 % (2.0-8.0); NEUTROPHILS # 2.8 10^3/uL (1.5-8.5); NEUTROPHILS % 49.1 % (36.0-66.0); PLATELET COUNT, AUTOMATED 173 10^3/uL (150-450); RED BLOOD COUNT 5.14 10^6/uL (4.30-6.10); WHITE BLOOD COUNT 5.7 10^3/uL (4.0-10.0)
[2024-04-05 15:51] LABS: HEMOGLOBIN A1c 5.2 % (4.0-6.0); PSA SCREENING 1.71 NG/ML (< 4.00)
[2024-04-05 15:54] LABS: ALBUMIN 3.6 G/DL (3.2-5.2); ALKALINE PHOSPHATASE 102 U/L (46-116); ALT/SGPT 17 U/L (7.0-40); AST/SGOT 13 U/L (<34); BILIRUBIN,TOTAL 0.8 MG/DL (0.3-1.2); BLOOD UREA NITROGEN 21 MG/DL (9-23); CALCIUM LEVEL 9.3 MG/DL (8.3-10.6); CARBON DIOXIDE LEVEL 31 MMOL/L (20-31); CHLORIDE LEVEL 106 MMOL/L (98-107); CHOLESTEROL LEVEL 119 MG/DL (<200); CHOLESTEROL RISK RATIO 2.75 (<5); CREATININE FOR GFR 0.78 MG/DL (0.70-1.30); GLOMERULAR FILTRATION RATE > 60.0 (>42); GLUCOSE, FASTING 110 MG/DL (74-106); HDL CHOLESTEROL 43.2 MG/DL (>40); IRON (FE) 121 UG/DL (65-175); NON-HDL-C 75.8 MG/DL; PERCENT SATURATION 40.1 % (19.7-50.0); POTASSIUM SERUM 4.6 MMOL/L (3.5-5.1); SODIUM LEVEL 142 MMOL/L (136-145); TOTAL IRON BINDING CAPACITY 302 UG/DL (250-425); TOTAL PROTEIN 6.4 G/DL (5.7-8.2); TRIGLYCERIDES LEVEL 129 MG/DL (<150)
[2024-04-05 15:55] LABS: FREE T4 1.19 NG/DL (0.89-1.76)
[2024-04-05 15:56] LABS: FERRITIN 168.6 NG/ML (10.5-307.3); THYROID STIMULATING HORMONE 2.007 uIU/ML (0.55-4.78)
[2024-04-05 16:04] LABS: IMMUNOGLOBULIN E 156.3 IU/ML (0-378)
[2024-04-06 15:31] LABS: BERMUDA GRASS IGE 0.86 kU/L (<0.10); BIRCH IGE < 0.10 kU/L (<0.10); COMMON RAGWEED SHORT IGE 0.39 kU/L (<0.10); D002-IGE D FARINAE 0.14 kU/L (<0.10); E001-IGE CAT DANDER < 0.10 kU/L (<0.10); E005-IGE DOG DANDER < 0.10 kU/L (<0.10); ELM IGE < 0.10 kU/L (<0.10); I006 IGE COCKROACH < 0.10 kU/L (<0.10); M002 IGE CLADOSPORIUM HERBARU < 0.10 kU/L (<0.10); M003 IGE ASPERGILLUS FUMIGATU < 0.10 kU/L (<0.10); M006 IGE ALTERNIA ALTERNATA < 0.10 kU/L (<0.10); M1-PENICILLIUM NOTATUM < 0.10 kU/L (<0.10); MOUSE URINE IGE < 0.10 kU/L (<0.10); MUGWORT IGE < 0.10 kU/L (<0.10); OAK IGE < 0.10 kU/L (<0.10); ROUGH PIGWEED IGE < 0.10 kU/L (<0.10); SHEEP SORREL IGE < 0.10 kU/L (<0.10); SYCAMORE IGE < 0.10 kU/L (<0.10); T001-IGE MAPLE BOX ELDER 0.77 kU/L (<0.10); T006-IGE MOUNTAIN CEDAR < 0.10 kU/L (<0.10); T014 COTTONWOOD IGE < 0.10 kU/L (<0.10); TIMOTHY GRASS IGE 3.11 kU/L (<0.10); WALNUT TREE IGE < 0.10 kU/L (<0.10); WHITE ASH IGE < 0.10 kU/L (<0.10); WHITE MULBERRY IGE < 0.10 kU/L (<0.10)
[2024-04-07 15:27] LABS: IMMUNOGLOBULIN E FOR ALLERGENS 144 kU/L (<OR=114)
== END ==
LOC: M PLALAB 11:09
PROVIDERS: ATTEND Family Medicine
DX: E83.119 Hemochromatosis, unspecified (principal); J33.9 Nasal polyp, unspecified; E78.2 Mixed hyperlipidemia; D75.1 Secondary polycythemia; R73.01 Impaired fasting glucose; R91.1 Solitary pulmonary nodule; Z12.5 Encounter for screening for malignant neoplasm of prostate; J32.9 Chronic sinusitis, unspecified

== ENCOUNTER → 2024-09-14 | Outpatient (CLI) | payer MEDICARE, BC ==
[2024-09-14 12:59] LABS: BASO # 0.1 10^3/uL (0.0-0.2); BASO % 1.1 % (0.0-1.0); EOS # 0.5 10^3/uL (0.0-0.5); EOS % 7.6 % (0.0-3.0); LYMPH # 1.7 10^3/uL (1.5-5.0); LYMPH % 28.1 % (24.0-44.0); MEAN CORPUSCULAR HGB CONC 33.3 g/dl (32.0-36.5); MONO # 0.5 10^3/uL (0.0-0.8); MONO % 8.8 % (2.0-8.0); NEUTROPHILS # 3.3 10^3/uL (1.5-8.5); NEUTROPHILS % 54.2 % (36.0-66.0); PLATELET COUNT, AUTOMATED 179 10^3/uL (150-450); RED BLOOD COUNT 5.16 10^6/uL (4.30-6.10); WHITE BLOOD COUNT 6.2 10^3/uL (4.0-10.0)
[2024-09-14 13:11] LABS: ALKALINE PHOSPHATASE 105 U/L (40-129); ALT/SGPT 20 U/L (7.0-40); AST/SGOT 16 U/L (<34); BILIRUBIN,TOTAL 0.8 MG/DL (0.3-1.2); BLOOD UREA NITROGEN 18 MG/DL (9-23); CALCIUM LEVEL 9.8 MG/DL (8.3-10.6); CARBON DIOXIDE LEVEL 31 MMOL/L (20-31); CHLORIDE LEVEL 104 MMOL/L (98-107); CREATININE FOR GFR 0.91 MG/DL (0.70-1.30); GLOMERULAR FILTRATION RATE > 60.0 (>42); GLUCOSE, FASTING 83 MG/DL (74-106); POTASSIUM SERUM 4.2 MMOL/L (3.5-5.1); SODIUM LEVEL 141 MMOL/L (136-145); TOTAL PROTEIN 7.2 G/DL (5.7-8.2)
[2024-09-14 13:13] LABS: INR 0.99; PARTIAL THROMBOPLASTIN TIME 28.9 SECONDS (24.8-34.2); PROTHROMBIN TIME 13.4 SECONDS (12.5-14.5); VITAMIN B12 LEVEL 955 PG/ML (211-911)
== END ==
LOC: M PLALAB 09:36
PROVIDERS: ATTEND Family Medicine
DX: K74.00 Hepatic fibrosis, unspecified (principal); E53.8 Deficiency of other specified B group vitamins

== ENCOUNTER 2024-11-14 15:00 | Emergency (ER) | payer MEDICARE, BC ==
[~2024-11-14] VITALS: Ht 175.3 cm; Wt 63.6 kg
[2024-11-14 15:41] LABS: BASO # 0.1 10^3/uL (0.0-0.2); BASO % 0.9 % (0.0-1.0); EOS # 0.7 10^3/uL (0.0-0.5); EOS % 13.6 % (0.0-3.0); HEMOGLOBIN 16.2 g/dl (13.5-17.5); LYMPH # 1.5 10^3/uL (1.5-5.0); LYMPH % 27.6 % (24.0-44.0); MEAN CORPUSCULAR HEMOGLOBIN 30.8 pg (27.0-33.0); MEAN CORPUSCULAR HGB CONC 33.8 g/dl (32.0-36.5); MEAN CORPUSCULAR VOLUME 91.3 fl (80.0-96.0); MONO # 0.5 10^3/uL (0.0-0.8); NEUTROPHILS # 2.6 10^3/uL (1.5-8.5); NEUTROPHILS % 48.7 % (36.0-66.0); PLATELET COUNT, AUTOMATED 186 10^3/uL (150-450); RED BLOOD COUNT 5.26 10^6/uL (4.30-6.10); WHITE BLOOD COUNT 5.4 10^3/uL (4.0-10.0)
[2024-11-14] MEDS: IPRATROPIUM 0.5MG/ALBUTEROL 2.5MG INH SOL UD 3ML (DUONEB) NEB ONE (15:56)
[2024-11-14] MEDS: ALBUTEROL SULFATE 2.5MG/0.5ML INH NEB SOLN NEB ONE (15:56)
[2024-11-14 16:09] LABS: ALBUMIN 3.9 G/DL (3.2-5.2); ALKALINE PHOSPHATASE 108 U/L (40-129); ALT/SGPT 21 U/L (7.0-40); AST/SGOT 21 U/L (<34); BILIRUBIN,DIRECT 0.3 MG/DL (<0.4); BILIRUBIN,TOTAL 0.8 MG/DL (0.3-1.2); BLOOD UREA NITROGEN 25 MG/DL (9-23); CALCIUM LEVEL 9.7 MG/DL (8.3-10.6); CARBON DIOXIDE LEVEL 30 MMOL/L (20-31); CHLORIDE LEVEL 108 MMOL/L (98-107); CREATININE FOR GFR 0.86 MG/DL (0.70-1.30); GLOMERULAR FILTRATION RATE > 60.0 (>42); GLUCOSE, FASTING 94 MG/DL (74-106); POTASSIUM SERUM 4.2 MMOL/L (3.5-5.1); SODIUM LEVEL 146 MMOL/L (136-145); TOTAL PROTEIN 7.2 G/DL (5.7-8.2)
[2024-11-14 16:39] LABS: THYROID STIMULATING HORMONE 2.496 uIU/ML (0.55-4.78)
[2024-11-14 16:48] LABS: PROCALCITONIN <0.04 ng/ml
[2024-11-14] MEDS ORDERED: VENTAER INH (17:51)
[2024-11-14] MEDS ORDERED: MUCI600T31 PO (17:51)
[2024-11-14] MEDS: guaiFENesin ER TABLET 600 MG TAB PO ONE (18:05)
[2024-11-14 18:15] VITALS: BP 149/83; TEMP 98; O2SAT 95
[2024-11-14] MEDS ORDERED: guaiFENesin ER TABLET 600 MG TAB PO SCH (21:00)
== END 2024-11-14 18:15 | disposition home or self-care (01) ==
LOC: M ED 15:00
DX: J20.9 Acute bronchitis, unspecified (principal); I10 Essential (primary) hypertension; E78.2 Mixed hyperlipidemia; Z79.899 Other long term (current) drug therapy

== ENCOUNTER → 2025-02-10 | Outpatient (CLI) | payer MEDICARE, BC ==
[~2025-02-10] MED LIST changes: +MUCI600T31 PO; +VENTAER INH
[2025-02-10 10:34] LABS: BASO % 0.7 % (0.0-1.0); EOS # 0.7 10^3/uL (0.0-0.5); EOS % 12.3 % (0.0-3.0); HEMATOCRIT 47.6 % (42.0-52.0); HEMOGLOBIN 15.7 g/dl (13.5-17.5); LYMPH # 1.8 10^3/uL (1.5-5.0); LYMPH % 29.5 % (24.0-44.0); MEAN CORPUSCULAR VOLUME 94.1 fl (80.0-96.0); MONO # 0.5 10^3/uL (0.0-0.8); MONO % 8.3 % (2.0-8.0); NEUTROPHILS # 2.9 10^3/uL (1.5-8.5); NEUTROPHILS % 48.9 % (36.0-66.0); PLATELET COUNT, AUTOMATED 197 10^3/uL (150-450); RED BLOOD COUNT 5.06 10^6/uL (4.30-6.10)
[2025-02-10 10:55] LABS: HEMOGLOBIN A1c 5.3 % (4.0-6.0)
[2025-02-10 10:59] LABS: PERCENT SATURATION 37.9 % (19.7-50.0)
[2025-02-10 11:00] LABS: ALBUMIN 3.6 G/DL (3.2-5.2); BILIRUBIN,TOTAL 0.6 MG/DL (0.3-1.2); CALCIUM LEVEL 9.1 MG/DL (8.3-10.6); CHOLESTEROL RISK RATIO 2.46 (<5); CREATININE FOR GFR 0.89 MG/DL (0.70-1.30); FERRITIN 263.4 NG/ML (10.5-307.3); GLOMERULAR FILTRATION RATE 87.2 (>42); HDL CHOLESTEROL 43.8 MG/DL (>40); LDL CHOLESTEROL 44.8 MG/DL (<100); NON-HDL-C 64.2 MG/DL; POTASSIUM SERUM 4.3 MMOL/L (3.5-5.1); PSA SCREENING 1.98 NG/ML (< 4.00); TOTAL PROTEIN 6.6 G/DL (5.7-8.2)
== END ==
LOC: M PLALAB 07:16
PROVIDERS: ATTEND Family Medicine
DX: K74.00 Hepatic fibrosis, unspecified (principal); E53.8 Deficiency of other specified B group vitamins; R73.01 Impaired fasting glucose; E83.119 Hemochromatosis, unspecified; E78.2 Mixed hyperlipidemia; Z12.5 Encounter for screening for malignant neoplasm of prostate
CPT/HCPCS: 36415; 80053; 80061; 81517; 82607; 82728; 83036; 83550; 85025; G0103

== ENCOUNTER → 2025-02-28 | Outpatient (CLI) | payer MEDICARE, BC | LOC: M PLAIMG 10:36 | PROVIDERS: ATTEND Student in an Organized Health Care Education/Training Program | DX: R06.02 Shortness of breath (principal) ==

== ENCOUNTER 2025-05-16 10:29 | Inpatient (IN) | payer MEDICARE, BC ==
[~2025-05-16] VITALS: Ht 175.3 cm; Wt 63.6 kg
[2025-05-16 11:08] LABS: BASO # 0.0 10^3/uL (0.0-0.2); BASO % 0.2 % (0.0-1.0); EOS # 0.3 10^3/uL (0.0-0.5); EOS % 3.1 % (0.0-3.0); LYMPH # 0.8 10^3/uL (1.5-5.0); LYMPH % 7.7 % (24.0-44.0); MONO # 0.8 10^3/uL (0.0-0.8); MONO % 8.2 % (2.0-8.0); NEUTROPHILS # 8.2 10^3/uL (1.5-8.5); NEUTROPHILS % 80.2 % (36.0-66.0); PLATELET COUNT, AUTOMATED 313 10^3/uL (150-450)
[2025-05-16 11:35] LABS: ALT/SGPT 116 U/L (7.0-40); AST/SGOT 175 U/L (<34); CALCIUM LEVEL 8.7 MG/DL (8.3-10.6); CARBON DIOXIDE LEVEL 23 MMOL/L (20-31); CHLORIDE LEVEL 100 MMOL/L (98-107); CK-MB VALUE MASS 28.0 NG/ML (<3.6); CREATININE FOR GFR 0.67 MG/DL (0.70-1.30); GLOMERULAR FILTRATION RATE > 90.0 (>35); POTASSIUM SERUM 4.4 MMOL/L (3.5-5.1); SODIUM LEVEL 139 MMOL/L (136-145)
[2025-05-16 11:47] LABS: CPK CREATINE PHOSPHOKINASE 2708 U/L (46-171); MB/CK RELATIVE INDEX 1.03 (< OR =4)
[2025-05-16 12:34] LABS: INR 1.11
[2025-05-16] MEDS ORDERED: ISOVUE-370 76% 100 ML VIAL As Ordered ONE (13:02)
[2025-05-16] MEDS: NS (Normal Saline) 0.9% 1,000 ML IV SCH ×2 (13:25→15:15)
[2025-05-16] MEDS: MORPHINE 4 MG/ML 1 ML VIAL IV ONE (13:25)
[2025-05-16 13:54] LABS: APPEARANCE, URINE CLEAR (CLEAR); BACTERIA, URINE AUTO NEGATIVE (NEGATIVE); BILIRUBIN, URINE AUTO NEGATIVE (NEGATIVE); BLOOD, URINE BLOOD 1+ (NEGATIVE); GLUCOSE, URINE (UA) AUTO NEGATIVE (NEGATIVE); KETONE, URINE AUTO 2+ mg/dL (NEGATIVE); LEUKOCYTE ESTERASE, URINE AUTO NEGATIVE (NEGATIVE); MUCUS, URINE SMALL (NEGATIVE); NITRITE, URINE AUTO NEGATIVE (NEGATIVE); PROTEIN, URINE AUTO 1+ mg/dL (NEGATIVE); RBC, URINE AUTO 2 /HPF (0-3); SPECIFIC GRAVITY URINE AUTO 1.040 (1.002-1.035); SQUAMOUS EPITHELIAL CELL UR AU 0 /HPF (0-6); UROBILINOGEN, URINE AUTO 2.0 mg/dL (0.0-2.0); WBC, URINE AUTO 1 /HPF (0-3)
[2025-05-16] MEDS ORDERED: HOME MED LIST COMPLETE! XX SCH (14:30)
[2025-05-16] MEDS ORDERED: VENTAER INH (14:30)
[2025-05-16] MEDS ORDERED: MUCI600T31 PO (14:30)
[2025-05-16] MEDS ORDERED: BREO1INH INH (14:30)
[2025-05-16] MEDS ORDERED: MORPHINE 2 MG/ML 1 ML VIAL IV PRN (15:05)
[2025-05-16] MEDS ORDERED: MOM 30 ML SUSPENSION UDC PO PRN (15:05)
[2025-05-16] MEDS ORDERED: MAALOX 30 ML SUSP *UDC PO PRN (15:05)
[2025-05-16 16:00] VITALS: BP 152/86; TEMP 97.7; O2SAT 99
[2025-05-16 16:40] LABS: HEPATITIS C VIRUS ABY INDEX < 0.02 INDEX (<0.8)
[2025-05-16] MEDS ORDERED: ALBUTEROL 90 MCG/ACT 8 GM HFA INHALER INH PRN (17:05)
[2025-05-16 18:32] VITALS: O2SAT 99
[2025-05-16] MEDS: ADVAIR HFA 115/21 MCG INHALER INH SCH (19:16)
[2025-05-16 19:54] VITALS: BP 158/86; TEMP 97.5
[2025-05-16] MEDS: LATANOPROST 0.005% OPHTH SOLN 2.5 ML OU SCH (20:19)
[2025-05-16] MEDS: guaiFENesin ER TABLET 600 MG TAB PO SCH (20:20)
[2025-05-16] MEDS: SENNOSIDES/DOCUSATE SODIUM 8.6 MG/50MG TAB PO SCH (20:20)
[2025-05-16] MEDS ORDERED: DOCUSATE SODIUM 100 MG CAPSULE PO SCH (21:00)
[2025-05-17 05:12] VITALS: BP 137/69; TEMP 97.3; O2SAT 96
[2025-05-17 06:30] LABS: PLATELET COUNT, AUTOMATED 237 10^3/uL (150-450)
[2025-05-17 07:03] LABS: ALT/SGPT 132 U/L (7.0-40); AST/SGOT 295 U/L (<34); CALCIUM LEVEL 7.6 MG/DL (8.3-10.6); CARBON DIOXIDE LEVEL 27 MMOL/L (20-31); CHLORIDE LEVEL 104 MMOL/L (98-107); CPK CREATINE PHOSPHOKINASE 6737 U/L (46-171); CREATININE FOR GFR 0.74 MG/DL (0.70-1.30); GLOMERULAR FILTRATION RATE > 90.0 (>35); MAGNESIUM LEVEL 2.1 MG/DL (1.8-2.4); POTASSIUM SERUM 3.9 MMOL/L (3.5-5.1); SODIUM LEVEL 142 MMOL/L (136-145)
[2025-05-17 07:47] LABS: EOSINOPHILS 22 % (0-3); LYMPHOCYTES 15 % (16-44); MONOCYTES 7 % (0-5)
[2025-05-17 07:48] LABS: NEUTROPHILS 0 % (28-66); PLATELET ESTIMATE NORMAL (NORMAL)
[2025-05-17] MEDS: ENOXAPARIN 40 MG/0.4 ML SYRINGE (J1650 PER 10MG) SC SCH (08:35)
[2025-05-17] MEDS: predniSONE 20 MG TAB PO SCH (10:53)
[2025-05-17] MEDS: BACLOFEN 5 MG PER 1/2 TABLET PO PRN (10:53)
[2025-05-17] MEDS: ACETAMINOPHEN 325 MG TAB PO PRN (11:06)
[2025-05-17 12:00] VITALS: BP 116/71; TEMP 97.3; O2SAT 98
[2025-05-17 21:02] VITALS: BP 132/65; TEMP 97.3; O2SAT 96
[2025-05-18 04:51] VITALS: BP 128/70; TEMP 97.3; O2SAT 96
[2025-05-18 08:08] LABS: BASO # 0.0 10^3/uL (0.0-0.2); BASO % 0.3 % (0.0-1.0); EOS # 0.8 10^3/uL (0.0-0.5); EOS % 9.8 % (0.0-3.0); LYMPH # 1.2 10^3/uL (1.5-5.0); LYMPH % 13.5 % (24.0-44.0); MONO # 0.8 10^3/uL (0.0-0.8); MONO % 9.1 % (2.0-8.0); NEUTROPHILS # 5.7 10^3/uL (1.5-8.5); NEUTROPHILS % 66.5 % (36.0-66.0); PLATELET COUNT, AUTOMATED 243 10^3/uL (150-450)
[2025-05-18 08:34] LABS: ALT/SGPT 142 U/L (7.0-40); AST/SGOT 208 U/L (<34); CALCIUM LEVEL 7.7 MG/DL (8.3-10.6); CARBON DIOXIDE LEVEL 29 MMOL/L (20-31); CHLORIDE LEVEL 103 MMOL/L (98-107); CREATININE FOR GFR 0.68 MG/DL (0.70-1.30); GLOMERULAR FILTRATION RATE > 90.0 (>35); MAGNESIUM LEVEL 2.0 MG/DL (1.8-2.4); POTASSIUM SERUM 3.8 MMOL/L (3.5-5.1); SODIUM LEVEL 142 MMOL/L (136-145)
[2025-05-18 08:54] LABS: CPK CREATINE PHOSPHOKINASE 2395 U/L (46-171)
[2025-05-18 10:44] LABS: C REACTIVE PROTEIN QUANTITATIV 8.15 MG/DL (<1.0)
[2025-05-18 10:44] LABS: C REACTIVE PROTEIN QUANTITATIV 6.13 MG/DL (<1.0)
[2025-05-18 11:05] LABS: C REACTIVE PROTEIN QUANTITATIV 10.33 MG/DL (<1.0)
[2025-05-18 12:00] VITALS: BP 124/72; TEMP 97.9; O2SAT 96
[2025-05-18 20:16] VITALS: BP 122/78; TEMP 97.2; O2SAT 98
[2025-05-19 06:33] LABS: BASO # 0.0 10^3/uL (0.0-0.2); BASO % 0.3 % (0.0-1.0); EOS # 1.1 10^3/uL (0.0-0.5); EOS % 11.6 % (0.0-3.0); LYMPH # 1.3 10^3/uL (1.5-5.0); LYMPH % 13.8 % (24.0-44.0); MONO # 1.0 10^3/uL (0.0-0.8); MONO % 10.9 % (2.0-8.0); NEUTROPHILS # 5.7 10^3/uL (1.5-8.5); NEUTROPHILS % 62.6 % (36.0-66.0); PLATELET COUNT, AUTOMATED 254 10^3/uL (150-450)
[2025-05-19 07:00] LABS: ALT/SGPT 141 U/L (7.0-40); AST/SGOT 150 U/L (<34); CALCIUM LEVEL 7.7 MG/DL (8.3-10.6); CARBON DIOXIDE LEVEL 27 MMOL/L (20-31); CHLORIDE LEVEL 103 MMOL/L (98-107); CREATININE FOR GFR 0.70 MG/DL (0.70-1.30); GLOMERULAR FILTRATION RATE > 90.0 (>35); MAGNESIUM LEVEL 1.9 MG/DL (1.8-2.4); POTASSIUM SERUM 3.8 MMOL/L (3.5-5.1); SODIUM LEVEL 144 MMOL/L (136-145)
[2025-05-19 07:41] LABS: CPK CREATINE PHOSPHOKINASE 1217 U/L (46-171)
[2025-05-19] MEDS ORDERED: OXYC1CAP2 PO ×2 (11:59→12:05)
[2025-05-19 12:00] VITALS: BP 139/72; TEMP 97.5
[2025-05-19] MEDS ORDERED: DOCU8.6T PO (12:05)
[2025-05-19] MEDS ORDERED: PRED10TA2 PO (12:05)
[2025-05-22 12:02] LABS: RNP ANTIBODY <1.0 NEG AI (<1.0 NEG); SSA SJOGRENS A <1.0 NEG AI (<1.0 NEG); SSB SJOGRENS B <1.0 NEG AI (<1.0 NEG)
== END 2025-05-19 15:30 | disposition home health service (06) | DRG 552 ==
LOC: M ED 10:29 → EDBD 10:29 → M ED INP 15:04 → M MS5PR 16:05
PROVIDERS: ADMIT Internal Medicine; ATTEND Internal Medicine
PROC: B246ZZZ Ultrasonography of Right and Left Heart (ICD-10-PCS; principal; 2025-05-17)
DX: M54.50 Low back pain, unspecified (principal); M62.82 Rhabdomyolysis; Z66 Do not resuscitate; E78.5 Hyperlipidemia, unspecified; R74.01 Elevation of levels of liver transaminase levels; R91.8 Other nonspecific abnormal finding of lung field; R06.02 Shortness of breath; M47.9 Spondylosis, unspecified; D64.9 Anemia, unspecified; Z79.899 Other long term (current) drug therapy; Z90.49 Acquired absence of other specified parts of digestive tract

== ENCOUNTER → 2025-05-23 | Outpatient (CLI) | payer MEDICARE, BC ==
[~2025-05-23] MED LIST changes: +BREO1INH INH; +BUPR10DI3 TD; +DOCU8.6T PO; +NAPR220C23 PO; +OXYC1CAP2 PO; +PRED10TA2 PO
[2025-05-23 18:08] LABS: BASO # 0.0 10^3/uL (0.0-0.2); BASO % 0.1 % (0.0-1.0); EOS # 0.1 10^3/uL (0.0-0.5); EOS % 0.5 % (0.0-3.0); LYMPH # 0.7 10^3/uL (1.5-5.0); LYMPH % 7.2 % (24.0-44.0); MONO # 0.6 10^3/uL (0.0-0.8); MONO % 6.1 % (2.0-8.0); NEUTROPHILS # 8.5 10^3/uL (1.5-8.5); NEUTROPHILS % 85.6 % (36.0-66.0); PLATELET COUNT, AUTOMATED 332 10^3/uL (150-450)
[2025-05-23 18:23] LABS: C REACTIVE PROTEIN QUANTITATIV 8.54 MG/DL (<1.0); CPK CREATINE PHOSPHOKINASE 811 U/L (46-171)
[2025-05-23 18:25] LABS: VITAMIN B12 LEVEL 1136 PG/ML (211-911)
[2025-05-23 18:30] LABS: ALT/SGPT 154 U/L (7.0-40); AST/SGOT 83 U/L (<34); CALCIUM LEVEL 8.8 MG/DL (8.3-10.6); CARBON DIOXIDE LEVEL 30 MMOL/L (20-31); CHLORIDE LEVEL 98 MMOL/L (98-107); CREATININE FOR GFR 0.74 MG/DL (0.70-1.30); GLOMERULAR FILTRATION RATE > 90.0 (>35); POTASSIUM SERUM 4.5 MMOL/L (3.5-5.1); SODIUM LEVEL 141 MMOL/L (136-145)
[2025-05-23 18:31] LABS: ERYTHROCYTE SEDIMENTATION RATE 33 mm/hr (0-20)
[2025-05-26 16:52] LABS: ALDOLASE 18.1 U/L (< OR = 8.1)
[2025-05-30 23:28] LABS: ENHANCED LIVER FIBROSIS SCORE 10.26 (<9.80)
== END ==
LOC: M PLALAB 14:46
PROVIDERS: ATTEND Family Medicine
DX: K74.00 Hepatic fibrosis, unspecified (principal); R74.8 Abnormal levels of other serum enzymes; E53.8 Deficiency of other specified B group vitamins

== ENCOUNTER → 2025-05-25 | Outpatient (CLI) | payer MEDICARE, BC ==
[~2025-05-25] MED LIST changes: +PROHANCE 279.3MG/ML 5ML VIAL ONE
== END ==
LOC: M PLAIMG 10:40
PROVIDERS: ATTEND Family Medicine
DX: R74.8 Abnormal levels of other serum enzymes (principal)

== ENCOUNTER 2025-06-02 14:06 | Inpatient (IN) | payer MEDICARE, BC ==
[~2025-06-02] VITALS: Ht 185.4 cm; Wt 53.5 kg
[~2025-06-02 14:06] MED LIST changes: -BUPR10DI3 TD; -NAPR220C23 PO; -PROHANCE 279.3MG/ML 5ML VIAL ONE
[2025-06-02] MEDS: MORPHINE 4 MG/ML 1 ML VIAL IV PRN (17:04)
[2025-06-02] MEDS: NS (Normal Saline) 0.9% 1,000 ML IV SCH (17:05)
[2025-06-02 17:33] LABS: BASO # 0.0 10^3/uL (0.0-0.2); BASO % 0.1 % (0.0-1.0); EOS # 0.0 10^3/uL (0.0-0.5); EOS % 0.3 % (0.0-3.0); LYMPH # 0.6 10^3/uL (1.5-5.0); LYMPH % 6.3 % (24.0-44.0); MONO # 0.5 10^3/uL (0.0-0.8); MONO % 5.4 % (2.0-8.0); NEUTROPHILS # 8.7 10^3/uL (1.5-8.5); NEUTROPHILS % 87.3 % (36.0-66.0); PLATELET COUNT, AUTOMATED 214 10^3/uL (150-450)
[2025-06-02 17:52] LABS: ALT/SGPT 161.0 U/L (7.0-40); AST/SGOT 200.0 U/L (<34); CALCIUM LEVEL 8.5 MG/DL (8.3-10.6); CARBON DIOXIDE LEVEL 29.0 MMOL/L (20-31); CHLORIDE LEVEL 99.0 MMOL/L (98-107); CREATININE FOR GFR 1.01 MG/DL (0.70-1.30); GLOMERULAR FILTRATION RATE 75.2 (>35); POTASSIUM SERUM 5.0 MMOL/L (3.5-5.1); SODIUM LEVEL 140.0 MMOL/L (136-145)
[2025-06-02 17:53] LABS: ERYTHROCYTE SEDIMENTATION RATE 40 mm/hr (0-20)
[2025-06-02 18:21] LABS: C REACTIVE PROTEIN QUANTITATIV 13.44 MG/DL (<1.0); CPK CREATINE PHOSPHOKINASE 1913.0 U/L (46-171)
[2025-06-02] MEDS ORDERED: PRED10TA2 PO (18:42)
[2025-06-02] MEDS ORDERED: DOCU8.6T PO (18:44)
[2025-06-02] MEDS ORDERED: BUPR10DI3 TD (18:46)
[2025-06-02] MEDS ORDERED: NAPR220C23 PO (18:48)
[2025-06-02] MEDS ORDERED: HOME MED LIST COMPLETE! XX SCH (18:50)
[2025-06-02] MEDS: NS (Normal Saline) 0.9% 1,000 ML IV ONE (19:00)
[2025-06-02] MEDS ORDERED: PILL CUTTER 1 EACH XX PRN (19:00)
[2025-06-02] MEDS: predniSONE 20 MG TAB PO SCH (19:03)
[2025-06-02] MEDS: LR 1,000 ML IV SCH (19:56)
[2025-06-02] MEDS ORDERED: IPRATROPIUM 0.5 MG/ALBUTEROL 2.5 MG INH SOL UD 3 ML NEB PRN (20:00)
[2025-06-02] MEDS: SYMBICORT 160/4.5MCG INHALER 6GM INH SCH (20:00)
[2025-06-02] MEDS: LATANOPROST 0.005% OPHTH SOLN 2.5 ML OU SCH (21:00)
[2025-06-02 21:35] VITALS: BP 154/78; TEMP 97.9; O2SAT 99
[2025-06-03 03:12] VITALS: BP 136/68; TEMP 97.9; O2SAT 98
[2025-06-03 06:34] LABS: PLATELET COUNT, AUTOMATED 195 10^3/uL (150-450)
[2025-06-03 07:01] LABS: C REACTIVE PROTEIN QUANTITATIV 9.4 MG/DL (<1.0)
[2025-06-03 07:16] LABS: ALT/SGPT 130.0 U/L (7.0-40); AST/SGOT 146.0 U/L (<34); CALCIUM LEVEL 8.1 MG/DL (8.3-10.6); CARBON DIOXIDE LEVEL 28.0 MMOL/L (20-31); CHLORIDE LEVEL 103.0 MMOL/L (98-107); CPK CREATINE PHOSPHOKINASE 1381.0 U/L (46-171); CREATININE FOR GFR 0.99 MG/DL (0.70-1.30); GLOMERULAR FILTRATION RATE 77.0 (>35); POTASSIUM SERUM 4.8 MMOL/L (3.5-5.1); SODIUM LEVEL 141.0 MMOL/L (136-145)
[2025-06-03] MEDS: HEPARIN SOD 5000 UNITS/ML 1 ML VIAL/SYRINGE SC SCH (08:54)
[2025-06-03] MEDS: SENNA 8.6 MG TAB PO SCH (08:54)
[2025-06-03 11:51] VITALS: BP 149/73; TEMP 97.9; O2SAT 98
[2025-06-03 19:46] VITALS: BP 140/73; TEMP 98.1; O2SAT 98
[2025-06-04 03:37] VITALS: BP 140/69; TEMP 97.9; O2SAT 100
[2025-06-04 09:36] LABS: PLATELET COUNT, AUTOMATED 228 10^3/uL (150-450)
[2025-06-04 09:56] LABS: C REACTIVE PROTEIN QUANTITATIV 4.83 MG/DL (<1.0); CPK CREATINE PHOSPHOKINASE 800.0 U/L (46-171)
[2025-06-04 09:59] LABS: ALT/SGPT 152.0 U/L (7.0-40); AST/SGOT 129.0 U/L (<34); CALCIUM LEVEL 8.6 MG/DL (8.3-10.6); CARBON DIOXIDE LEVEL 29.0 MMOL/L (20-31); CHLORIDE LEVEL 101.0 MMOL/L (98-107); CREATININE FOR GFR 1.0 MG/DL (0.70-1.30); GLOMERULAR FILTRATION RATE 76.1 (>35); POTASSIUM SERUM 4.3 MMOL/L (3.5-5.1); SODIUM LEVEL 141.0 MMOL/L (136-145)
[2025-06-04 12:00] VITALS: BP 138/72; TEMP 97.9; O2SAT 99
[2025-06-04 19:41] VITALS: BP 144/72; TEMP 98.1; O2SAT 97
[2025-06-04] MEDS: PANTOPRAZOLE 40MG TAB PO SCH (21:50)
[2025-06-05 03:40] VITALS: BP 138/81; TEMP 97.7; O2SAT 98
[2025-06-05 07:11] LABS: PLATELET COUNT, AUTOMATED 212 10^3/uL (150-450)
[2025-06-05 08:02] LABS: ALT/SGPT 139.0 U/L (7.0-40); AST/SGOT 86.0 U/L (<34); C REACTIVE PROTEIN QUANTITATIV 3.41 MG/DL (<1.0); CALCIUM LEVEL 8.2 MG/DL (8.3-10.6); CARBON DIOXIDE LEVEL 28.0 MMOL/L (20-31); CHLORIDE LEVEL 102.0 MMOL/L (98-107); CPK CREATINE PHOSPHOKINASE 271.0 U/L (46-171); CREATININE FOR GFR 0.97 MG/DL (0.70-1.30); GLOMERULAR FILTRATION RATE 78.9 (>35); POTASSIUM SERUM 4.3 MMOL/L (3.5-5.1); SODIUM LEVEL 140.0 MMOL/L (136-145)
[2025-06-05] MEDS: ENOXAPARIN 40 MG/0.4 ML SYRINGE (J1650 PER 10MG) SC SCH (08:52)
[2025-06-05 12:00] VITALS: BP 131/78; TEMP 98.1; O2SAT 99
[2025-06-05 21:12] VITALS: BP 159/85; TEMP 97.9; O2SAT 99
[2025-06-06 03:30] VITALS: BP 123/71; TEMP 98.1; O2SAT 100
[2025-06-06 06:27] LABS: PLATELET COUNT, AUTOMATED 181 10^3/uL (150-450)
[2025-06-06 06:57] LABS: ALT/SGPT 141.0 U/L (7.0-40); AST/SGOT 70.0 U/L (<34); C REACTIVE PROTEIN QUANTITATIV 4.01 MG/DL (<1.0); CALCIUM LEVEL 8.1 MG/DL (8.3-10.6); CARBON DIOXIDE LEVEL 29.0 MMOL/L (20-31); CHLORIDE LEVEL 102.0 MMOL/L (98-107); CPK CREATINE PHOSPHOKINASE 118.0 U/L (46-171); CREATININE FOR GFR 0.98 MG/DL (0.70-1.30); GLOMERULAR FILTRATION RATE 78.0 (>35); POTASSIUM SERUM 4.4 MMOL/L (3.5-5.1); SODIUM LEVEL 139.0 MMOL/L (136-145)
[2025-06-06 12:00] VITALS: BP 138/75; TEMP 98.1; O2SAT 99
[2025-06-06 19:44] VITALS: BP 156/75; TEMP 98.2; O2SAT 99
[2025-06-07 03:02] VITALS: BP 151/92; TEMP 97.9; O2SAT 98
[2025-06-07 06:41] LABS: PLATELET COUNT, AUTOMATED 233 10^3/uL (150-450)
[2025-06-07 07:10] LABS: C REACTIVE PROTEIN QUANTITATIV 3.0 MG/DL (<1.0)
[2025-06-07 07:11] LABS: CPK CREATINE PHOSPHOKINASE 80.0 U/L (46-171)
[2025-06-07 07:12] LABS: ALT/SGPT 138.0 U/L (7.0-40); AST/SGOT 59.0 U/L (<34); CALCIUM LEVEL 8.4 MG/DL (8.3-10.6); CARBON DIOXIDE LEVEL 29.0 MMOL/L (20-31); CHLORIDE LEVEL 98.0 MMOL/L (98-107); CREATININE FOR GFR 1.01 MG/DL (0.70-1.30); GLOMERULAR FILTRATION RATE 75.2 (>35); POTASSIUM SERUM 4.3 MMOL/L (3.5-5.1); SODIUM LEVEL 138.0 MMOL/L (136-145)
[2025-06-07] MEDS: ULTRACET TAB PO SCH (11:11)
[2025-06-07 12:00] VITALS: BP 145/85; TEMP 98.2; O2SAT 96
[2025-06-07] MEDS ORDERED: MOM 30 ML SUSPENSION UDC PO PRN (15:55)
[2025-06-07] MEDS: SENNOSIDES/DOCUSATE SODIUM 8.6 MG/50MG TAB PO SCH (20:33)
[2025-06-07 20:52] VITALS: BP 143/77; TEMP 98.1; O2SAT 96
[2025-06-08 04:29] VITALS: BP 144/77; TEMP 98.1; O2SAT 98
[2025-06-08 06:36] LABS: PLATELET COUNT, AUTOMATED 243 10^3/uL (150-450)
[2025-06-08 07:09] LABS: ALT/SGPT 161.0 U/L (7.0-40); AST/SGOT 65.0 U/L (<34); CALCIUM LEVEL 8.0 MG/DL (8.3-10.6); CARBON DIOXIDE LEVEL 30.0 MMOL/L (20-31); CHLORIDE LEVEL 99.0 MMOL/L (98-107); CREATININE FOR GFR 1.03 MG/DL (0.70-1.30); GLOMERULAR FILTRATION RATE 73.4 (>35); POTASSIUM SERUM 4.2 MMOL/L (3.5-5.1); SODIUM LEVEL 138.0 MMOL/L (136-145)
[2025-06-08 19:59] VITALS: BP 135/73; TEMP 98.2; O2SAT 98
[2025-06-08 21:36] VITALS: O2SAT 98
[2025-06-09 05:20] VITALS: BP 135/73; TEMP 97.2; O2SAT 99
[2025-06-09 06:18] LABS: PLATELET COUNT, AUTOMATED 281 10^3/uL (150-450)
[2025-06-09 06:46] LABS: C REACTIVE PROTEIN QUANTITATIV 4.35 MG/DL (<1.0)
[2025-06-09 06:47] LABS: ALT/SGPT 139.0 U/L (7.0-40); AST/SGOT 55.0 U/L (<34); CALCIUM LEVEL 7.9 MG/DL (8.3-10.6); CARBON DIOXIDE LEVEL 31.0 MMOL/L (20-31); CHLORIDE LEVEL 99.0 MMOL/L (98-107); CREATININE FOR GFR 1.02 MG/DL (0.70-1.30); GLOMERULAR FILTRATION RATE 74.3 (>35); POTASSIUM SERUM 4.4 MMOL/L (3.5-5.1); SODIUM LEVEL 138.0 MMOL/L (136-145)
[2025-06-09] MEDS: TORSEMIDE 20 MG TAB PO SCH (08:22)
[2025-06-09 08:57] LABS: BORRELIA SPECIES DNA NOT DETECTED (NOT DETECT)
[2025-06-09 12:00] VITALS: BP 138/76; TEMP 97.9; O2SAT 96
[2025-06-09] MEDS: RIVAROXABAN 10MG TAB PO SCH (16:53)
[2025-06-09 19:32] VITALS: BP 134/72; TEMP 98.2; O2SAT 97
[2025-06-10 04:27] VITALS: BP 149/80; TEMP 98; O2SAT 100
[2025-06-10 07:32] LABS: ALT/SGPT 130.0 U/L (7.0-40); AST/SGOT 54.0 U/L (<34); CALCIUM LEVEL 8.3 MG/DL (8.3-10.6); CARBON DIOXIDE LEVEL 33.0 MMOL/L (20-31); CHLORIDE LEVEL 98.0 MMOL/L (98-107); CREATININE FOR GFR 1.09 MG/DL (0.70-1.30); GLOMERULAR FILTRATION RATE 68.6 (>35); POTASSIUM SERUM 3.9 MMOL/L (3.5-5.1); SODIUM LEVEL 142.0 MMOL/L (136-145)
[2025-06-10 12:00] VITALS: BP 135/78; TEMP 97.9; O2SAT 98
[2025-06-10 20:00] VITALS: BP 136/77; TEMP 98.1; O2SAT 98
[2025-06-11 04:25] VITALS: BP 138/78; TEMP 97.9; O2SAT 99
[2025-06-11 12:00] VITALS: BP 137/81; TEMP 98.1; O2SAT 97
[2025-06-11 20:00] VITALS: BP 126/64; TEMP 97.9; O2SAT 96
[2025-06-12 03:30] VITALS: BP 164/84; TEMP 97.9; O2SAT 99
[2025-06-12 09:20] LABS: ALT/SGPT 115.0 U/L (7.0-40); AST/SGOT 58.0 U/L (<34); CALCIUM LEVEL 7.8 MG/DL (8.3-10.6); CARBON DIOXIDE LEVEL 29.0 MMOL/L (20-31); CHLORIDE LEVEL 96.0 MMOL/L (98-107); CREATININE FOR GFR 1.02 MG/DL (0.70-1.30); GLOMERULAR FILTRATION RATE 74.3 (>35); POTASSIUM SERUM 4.1 MMOL/L (3.5-5.1); SODIUM LEVEL 139.0 MMOL/L (136-145)
[2025-06-12 10:07] LABS: BASO # 0.0 10^3/uL (0.0-0.2); BASO % 0.2 % (0.0-1.0); EOS # 0.6 10^3/uL (0.0-0.5); EOS % 3.4 % (0.0-3.0); LYMPH # 0.9 10^3/uL (1.5-5.0); LYMPH % 4.7 % (24.0-44.0); MONO # 2.0 10^3/uL (0.0-0.8); MONO % 10.6 % (2.0-8.0); NEUTROPHILS # 14.9 10^3/uL (1.5-8.5); NEUTROPHILS % 79.3 % (36.0-66.0); PLATELET COUNT, AUTOMATED 284 10^3/uL (150-450)
[2025-06-12 13:45] VITALS: BP 138/93; TEMP 98.1; O2SAT 99
[2025-06-12 20:00] VITALS: BP 114/73; TEMP 97.8; O2SAT 97
[2025-06-13 04:00] VITALS: BP 116/74; TEMP 97; O2SAT 97
[2025-06-13 10:21] LABS: PLATELET COUNT, AUTOMATED 296 10^3/uL (150-450)
[2025-06-13 10:54] LABS: CALCIUM LEVEL 7.6 MG/DL (8.3-10.6); CARBON DIOXIDE LEVEL 33.0 MMOL/L (20-31); CHLORIDE LEVEL 94.0 MMOL/L (98-107); CREATININE FOR GFR 1.13 MG/DL (0.70-1.30); GLOMERULAR FILTRATION RATE 65.7 (>35); POTASSIUM SERUM 3.3 MMOL/L (3.5-5.1); SODIUM LEVEL 139.0 MMOL/L (136-145)
[2025-06-13 12:00] VITALS: BP 139/94; TEMP 98.1; O2SAT 99
[2025-06-13 20:05] VITALS: BP 112/74; TEMP 98.8; O2SAT 98
[2025-06-13] MEDS: POTASSIUM CHLORIDE 10MEQ SR TABLET PO ONE (21:18)
[2025-06-14 04:58] VITALS: BP 122/92; TEMP 98.2; O2SAT 99
[2025-06-14 20:06] VITALS: BP 122/92; TEMP 98.2; O2SAT 99
[2025-06-15 04:00] VITALS: BP 126/73; TEMP 98.2; O2SAT 99
[2025-06-16 04:00] VITALS: BP 115/69; TEMP 97.7; O2SAT 99
[2025-06-17 03:53] VITALS: BP 147/76; TEMP 97.9; O2SAT 100
[2025-06-18 00:03] VITALS: BP 161/89; TEMP 97.9; O2SAT 97
[2025-06-19 05:10] VITALS: BP 148/72; TEMP 98; O2SAT 99
[2025-06-19 06:52] LABS: PLATELET COUNT, AUTOMATED 211 10^3/uL (150-450)
[2025-06-19 08:15] LABS: ALT/SGPT 74.0 U/L (7.0-40); AST/SGOT 45.0 U/L (<34); CALCIUM LEVEL 8.6 MG/DL (8.3-10.6); CARBON DIOXIDE LEVEL 32.0 MMOL/L (20-31); CHLORIDE LEVEL 93.0 MMOL/L (98-107); CREATININE FOR GFR 1.93 MG/DL (0.70-1.30); GLOMERULAR FILTRATION RATE 34.6 (>35); POTASSIUM SERUM 3.7 MMOL/L (3.5-5.1); SODIUM LEVEL 139.0 MMOL/L (136-145)
[2025-06-19] MEDS: predniSONE 10 MG TAB PO SCH (10:38)
[2025-06-20 03:57] VITALS: BP 119/50; TEMP 97.7; O2SAT 98
[2025-06-20 09:40] VITALS: BP 136/74
[2025-06-20 09:47] LABS: CALCIUM LEVEL 8.3 MG/DL (8.3-10.6); CARBON DIOXIDE LEVEL 32.0 MMOL/L (20-31); CHLORIDE LEVEL 93.0 MMOL/L (98-107); CREATININE FOR GFR 2.05 MG/DL (0.70-1.30); GLOMERULAR FILTRATION RATE 32.2 (>35); POTASSIUM SERUM 3.6 MMOL/L (3.5-5.1); SODIUM LEVEL 138.0 MMOL/L (136-145)
[2025-06-20] MEDS: NS (Normal Saline) 0.9% 1,000 ML IV SCH (13:38)
[2025-06-20] MEDS: ACETAMINOPHEN 325 MG TAB PO SCH (21:26)
[2025-06-21 03:22] VITALS: BP 158/86; TEMP 97.7; O2SAT 99
[2025-06-21 07:39] LABS: CALCIUM LEVEL 8.1 MG/DL (8.3-10.6); CARBON DIOXIDE LEVEL 32.0 MMOL/L (20-31); CHLORIDE LEVEL 99.0 MMOL/L (98-107); CREATININE FOR GFR 1.97 MG/DL (0.70-1.30); GLOMERULAR FILTRATION RATE 33.7 (>35); POTASSIUM SERUM 3.9 MMOL/L (3.5-5.1); SODIUM LEVEL 141.0 MMOL/L (136-145)
[2025-06-21 13:11] LABS: PLATELET COUNT, AUTOMATED 198 10^3/uL (150-450)
[2025-06-21 13:45] LABS: C REACTIVE PROTEIN QUANTITATIV 4.08 MG/DL (<1.0); COMPLEMENT C4 27.0 MG/DL (12-36); CPK CREATINE PHOSPHOKINASE 36.0 U/L (46-171)
[2025-06-21 17:52] LABS: APPEARANCE, URINE CLEAR (CLEAR); BACTERIA, URINE AUTO NEGATIVE (NEGATIVE); BILIRUBIN, URINE AUTO NEGATIVE (NEGATIVE); BLOOD, URINE BLOOD NEGATIVE (NEGATIVE); GLUCOSE, URINE (UA) AUTO NEGATIVE (NEGATIVE); KETONE, URINE AUTO NEGATIVE (NEGATIVE); LEUKOCYTE ESTERASE, URINE AUTO NEGATIVE (NEGATIVE); MUCUS, URINE SMALL (NEGATIVE); NITRITE, URINE AUTO NEGATIVE (NEGATIVE); PROTEIN, URINE AUTO NEGATIVE (NEGATIVE); RBC, URINE AUTO 1 /HPF (0-3); SPECIFIC GRAVITY URINE AUTO 1.013 (1.002-1.035); SQUAMOUS EPITHELIAL CELL UR AU 1 /HPF (0-6); UROBILINOGEN, URINE AUTO 0.2 mg/dL (0.0-2.0); WBC, URINE AUTO 1 /HPF (0-3)
[2025-06-21 20:02] VITALS: BP 155/74; TEMP 98.2; O2SAT 99
[2025-06-22 03:40] VITALS: BP 155/76; TEMP 98.1; O2SAT 99
[2025-06-22 07:57] LABS: CALCIUM LEVEL 8.0 MG/DL (8.3-10.6); CARBON DIOXIDE LEVEL 30.0 MMOL/L (20-31); CHLORIDE LEVEL 103.0 MMOL/L (98-107); CREATININE FOR GFR 1.86 MG/DL (0.70-1.30); GLOMERULAR FILTRATION RATE 36.1 (>35); PHOSPHORUS LEVEL 2.5 MG/DL (2.4-5.1); POTASSIUM SERUM 3.7 MMOL/L (3.5-5.1); SODIUM LEVEL 143.0 MMOL/L (136-145)
[2025-06-22] MEDS: ATOVAQUONE SUSP 750 MG/5 ML PO SCH (09:00)
[2025-06-22 12:00] VITALS: BP 152/78; TEMP 97.9; O2SAT 96
[2025-06-22 20:18] VITALS: BP 151/78; TEMP 98.1; O2SAT 99
[2025-06-23 04:38] VITALS: BP 162/86; TEMP 97.7; O2SAT 100
[2025-06-23 06:18] VITALS: BP 158/84
[2025-06-23 12:06] VITALS: BP 161/86; TEMP 98.2; O2SAT 97
[2025-06-23] MEDS: MIRALAX *UNIT DOSE* 17 GM PACKET PO SCH (15:32)
[2025-06-23] MEDS ORDERED: SCOPOLAMINE 1MG TRANSDERMAL PATCH TOP PRN (18:15)
[2025-06-23] MEDS ORDERED: ATROPINE SULFATE 1% OPHTH SOLN 2 ML BTL SL PRN (18:15)
[2025-06-24] MEDS: MORPHINE 10 MG/0.5 ML ORAL CONCENTRATE SOLUTION U/D SL PRN (09:10)
[2025-06-24 11:03] LABS: ANTI DS-DNA AB Negative (Negative)
[2025-06-24 19:38] LABS: COMPLEMENT TOTAL (CH50) 50 U/mL (31-60)
[2025-06-24 20:07] LABS: Antimyeloperxidase(MPO) Abs < 1.0 AI (<1.0)
[2025-06-26 16:14] LABS: ANTI-HISTONE ANTIBODIES < 1.0 U (<1.0)
[2025-06-27] MEDS: LORazepam 1 MG TAB PO PRN (00:07)
[2025-06-28 16:57] LABS: ANCA SCREEN REFLEX Negative (Negative)
[2025-07-03] MEDS: predniSONE 20 MG TAB PO SCH (09:00)
[2025-07-03] MEDS: LORazepam 1 MG TAB PO SCH (14:00)
[2025-07-03] MEDS: MORPHINE 10 MG/0.5 ML ORAL CONCENTRATE SOLUTION U/D SL SCH (17:05)
[2025-07-17] MEDS ORDERED: predniSONE 10 MG TAB PO SCH (09:00)
[2025-07-31] MEDS ORDERED: predniSONE 20 MG TAB PO SCH (09:00)
[2025-08-14] MEDS ORDERED: predniSONE 10 MG TAB PO SCH (09:00)
== END 2025-07-05 04:35 | disposition expired | DRG 555 ==
LOC: M ED 14:06 → M ED INP 19:49 → M MSPAV 21:18 → M MS5PR 06-26 23:48
PROVIDERS: ADMIT Student in an Organized Health Care Education/Training Program; ATTEND General Practice
DX: M60.9 Myositis, unspecified (principal); E43 Unspecified severe protein-calorie malnutrition; Z68.1 Body mass index [BMI] 19.9 or less, adult; N17.9 Acute kidney failure, unspecified; M62.82 Rhabdomyolysis; E87.3 Alkalosis; Z66 Do not resuscitate; E78.5 Hyperlipidemia, unspecified; J45.909 Unspecified asthma, uncomplicated; R26.89 Other abnormalities of gait and mobility; R74.01 Elevation of levels of liver transaminase levels; D72.829 Elevated white blood cell count, unspecified; R05.3 Chronic cough; R91.8 Other nonspecific abnormal finding of lung field; I25.10 Atherosclerotic heart disease of native coronary artery without angina pectoris; G62.9 Polyneuropathy, unspecified; R57.1 Hypovolemic shock; J44.9 Chronic obstructive pulmonary disease, unspecified; N18.9 Chronic kidney disease, unspecified; K21.9 Gastro-esophageal reflux disease without esophagitis; M48.07 Spinal stenosis, lumbosacral region; E87.6 Hypokalemia; R60.0 Localized edema; M48.061 Spinal stenosis, lumbar region without neurogenic claudication; R94.5 Abnormal results of liver function studies; Z79.899 Other long term (current) drug therapy; Z79.52 Long term (current) use of systemic steroids